=== PATIENT | female | born 1975 | race Caucasian/White ===

== ENCOUNTER 2021-08-10 10:22 | Emergency (ER) | payer OTHER, SELFPAY ==
--- NOTE | ~2021-08-10 | XR_ITS ---
EXAMINATION: XR elbow LT min 3V DATE: 08/10/2021 10:52 INDICATION: Left elbow injury and pain. TECHNIQUE: 4 views of left elbow were obtained. COMPARISON: None. FINDINGS: Bone alignment is normal. No fracture. Joint spaces are well maintained. There is no elbow joint effusion. IMPRESSION: 1. Normal left elbow. Reviewed, dictated and finalized at location A. [facility] IMPRESSION: 1. Normal left elbow.
[2021-08-10 10:29] VITALS: BP 144/102; PULSE 102; RESP 16; TEMP 36.6; O2SAT 100
--- NOTE | 2021-08-10 11:15 | ED.UPPEXIN ---
HPI - Extremity Injury (Upper) General Chief Complaint: Extremity Injury, Upper Stated Complaint: L elbow pain Time Seen by Provider: 08/10/21 10:29 Source: patient Mode of arrival: ambulatory Limitations: no limitations History of Present Illness HPI narrative: This is a 46-year-old female that presents to the emergency department for left elbow pain after an injury a week ago. Reports she hit her elbow on a metal door frame at the grocery store. Since she has had pain in the elbow. Especially with certain movements. She has been taking [id number] medications with little relief. Denies fever, erythema, edema, or numbness. Related Data Home Medications Medication Instructions Recorded Confirmed No Home Medications 08/10/21 08/10/21 Allergies Allergy/AdvReac Type Severity Reaction Status Date / Time No Known Allergies Allergy Verified 08/10/21 10:35 Review of Systems Review of Systems: CONSTITUTIONAL: Denies fever SKIN: Denies rash MUSCULOSKELETAL: Reports joint pain, and myalgia. NEUROLOGIC: Denies numbness, or weakness. All systems reviewed & are unremarkable except as noted in HPI and below PMFSH Past Medical History Medical History (Updated 08/10/21 @ 11:42 by Tahira Stapleton PA-C) No active medical problems Social History Social History Smoking status: Never smoker Alcohol intake: current Exam Narrative: GENERAL: Well-appearing, well-nourished, and in no acute distress. HEAD: Normocephalic, atraumatic. EYES: EOMI. EXTREMITIES: Normal range of motion. No edema or obvious deformity. Normal radial pulses. Normal sensation SKIN: Warm, dry, no rash. NEURO: No focal deficits. Alert and oriented x3. PSYCH: Normal mood and affect Course Vital Signs Vital signs: Vital Signs Temperature 97.8 F 08/10/21 10:29 Pulse Rate 102 H 08/10/21 10:29 Respiratory Rate 16 08/10/21 10:29 Blood Pressure 144/102 H 08/10/21 10:29 Pulse Oximetry 100 08/10/21 10:29 Temperature 97.8 F 08/10/21 10:29 Pulse Rate 102 H 08/10/21 10:29 Respiratory Rate 16 08/10/21 10:29 Blood Pressure 144/102 H 08/10/21 10:29 Pulse Oximetry 100 08/10/21 10:29 MDM - Extremity Injury (Upper) MDM Narrative Medical decision making narrative: Patient presents to the emergency department with left elbow pain after an injury a week ago. She is afebrile and nontoxic-appearing. No erythema, edema or warmth of the elbow. She is neurovascularly intact. Left elbow x-rays without acute osseous abnormalities. Patient was updated on case findings. Instructed to rest, ice and take lvmt-dvz-[id number] pain medication as needed. She is to follow-up with her primary care doctor. She was given warnings to return to the ER Imaging Data Radiologist's impression: ITS Impressions Elbow X-Ray 08/10/21 10:58 IMPRESSION: 1. Normal left elbow. Critical Care Time Critical Care Time Critical Care Time: No Discharge Plan Discharge Clinical Impression: Contusion of elbow Qualifiers: Encounter type: initial encounter Laterality: left Qualified Code(s): S50.02XA - Contusion of left elbow, initial encounter Patient Disposition: Home, Self-Care Condition: Stable Instructions: Contusion in Adults (ED) Additional Instructions: Return to the emergency department if you experience fever, redness and swelling of your elbow, numbness, or any other symptoms that are concerning to you Rest. Elevate. Ice to the area. Tylenol or ibuprofen as needed for pain Follow-up with your primary care doctor Prescriptions: No Action No Home Medications RF: 0 Follow-up/Referrals: Giovanny,MD Ellen [Primary Care Provider] - 3 Days
[2021-08-10] MEDS: KETOROLAC (*BKC) 60 MG/2 ML VIAL IM (11:26)
== END 2021-08-10 12:10 | disposition home or self-care (01) ==
PROVIDERS: Emergency Provider Emergency Medicine; PCP Hospitalist
DX: S50.02XA Contusion of left elbow, initial encounter (principal); W22.09XA Striking against other stationary object, initial encounter
CPT/HCPCS: 73080; 96372; 99283; A4565; J1885

== ENCOUNTER 2022-01-31 15:30 | Emergency (ER) | payer OTHER, SELFPAY ==
[2022-01-31 15:45] VITALS: BP 153/99; PULSE 122; RESP 14; TEMP 36.9; O2SAT 100
--- NOTE | 2022-01-31 17:36 | ED.DENTAL ---
HPI - Dental/Oral General Chief complaint: Dental/Oral Stated complaint: toothache Time Seen by Provider: 01/31/22 17:11 Source: patient Mode of arrival: ambulatory Limitations: no limitations History of Present Illness HPI Narrative: This is a 46-year-old female that presents to the emergency department for dentalgia present over the last 3 days. Reports she broke a tooth. It has been very painful since. She has an appointment with a dentist, but is not for another couple of weeks. Denies fever or drainage from the area. MD Complaint: tooth pain Location: Tooth # (4) Related Data Allergies Allergy/AdvReac Type Severity Reaction Status Date / Time No Known Allergies Allergy Verified 08/10/21 10:35 Review of Systems Review of Systems: CONSTITUTIONAL: Denies fever ENT: Reports dentalgia All systems reviewed & are unremarkable except as noted in HPI and below PMFSH Past Medical History Medical History (Updated 01/31/22 @ 17:39 by Tahira Stapleton PA-C) No active medical problems Social History Social History Smoking status: Never smoker Alcohol intake: current Exam Narrative: GENERAL: Well-appearing, well-nourished, and in no acute distress. HEAD: Normocephalic, atraumatic. EYES: EOMI. ENT: Nares clear, no rhinorrhea or epistaxis. Mucous membranes moist. Oropharynx without tonsillar hypertrophy exudate or other lesions. Poor dentition. Tooth #4 is broken, there is mild surrounding redness. No fluctuance to suggest abscess NECK: Supple. No adenopathy or masses. CHEST: Clear to auscultation. No respiratory distress. No wheezes rales or rhonchi HEART: Regular rate and rhythm. No murmur heard. Normal peripheral pulses. EXTREMITIES: Normal range of motion. No edema. SKIN: Warm, dry, no rash. NEURO: No focal deficits. Alert and oriented x3. PSYCH: Normal mood and affect Course Vital Signs Vital signs: Vital Signs Temperature 98.4 F 01/31/22 15:45 Pulse Rate 122 H 01/31/22 15:45 Respiratory Rate 14 01/31/22 15:45 Blood Pressure 153/99 H 01/31/22 15:45 Pulse Oximetry 100 01/31/22 15:45 Oxygen Delivery Room Air 01/31/22 15:45 Temperature 98.4 F 01/31/22 15:45 Pulse Rate 122 H 01/31/22 15:45 Respiratory Rate 14 01/31/22 15:45 Blood Pressure 153/99 H 01/31/22 15:45 Pulse Oximetry 100 01/31/22 15:45 Oxygen Delivery Room Air 01/31/22 15:45 MDM - Dental/Oral MDM Narrative Medical decision making narrative: Patient presents to the emergency department for tooth ache present over the last couple of days. She is afebrile and nontoxic-appearing. No evidence for abscess on exam. Will be started on oral antibiotics and instructed to follow-up with a dentist. She was given warnings to return to the ER Critical Care Time Critical Care Time Critical Care Time: No Discharge Plan Discharge Clinical Impression: Toothache Patient Disposition: Home, Self-Care Condition: Stable Instructions: Antibiotic Form, Toothache (ED) Additional Instructions: Return to the Emergency Department if you experience fever >101, increasing swelling and redness of your tooth, or any other symptoms that are concerning to you Take antibiotic as prescribed. Tylenol or Ibuprofen as needed for pain. You can apply a dab of clove oil to a Qtip and apply to the tooth to help numb the area Follow up with your dentist Prescriptions: New amoxicillin-pot clavulanate 875-125 mg tablet 1 tablet PO Q12H 10 Days Qty: 20 0RF No Action cyclobenzaprine 10 mg tablet 10 mg PO TID PRN (Reason: muscle spasm) Qty: 10 0RF Follow-up/Referrals: Giovanny,MD Ellen [Primary Care Provider] -
[2022-01-31] MEDS: HYDROcodone/acetaminophen (*CRX) 5-325 MG TABLET 1 TAB PO (17:42)
[2022-01-31 17:46] VITALS: BP 152/95; PULSE 97; RESP 18; TEMP 36.9; O2SAT 100
== END 2022-01-31 18:26 | disposition home or self-care (01) ==
LOC: ANHED 18:01
PROVIDERS: Emergency Provider Emergency Medicine; PCP Hospitalist
DX: K08.89 Other specified disorders of teeth and supporting structures (principal)
CPT/HCPCS: 99283; A9270

== ENCOUNTER 2024-09-19 14:35 | Emergency (ER) | payer OTHER, SELFPAY ==
--- NOTE | ~2024-09-19 | XR_ITS ---
XR foot LT min 3V 09/19/2024 15:08 Indication: Trauma to the left foot Procedure: 3 views left foot Comparison: No prior studies for comparison. Findings: No fracture, subluxation or dislocation. Prominent degenerative calcaneal enthesophyte at t he plantar aspect. There is a healed distal fibular fracture. Lisfranc joint intact. No acute fractur e or traumatic malalignment. Impression: 1: No acute fracture. Reviewed, dictated and finalized at location A. Impression: 1: No acute fracture.
[2024-09-19 14:39] VITALS: BP 158/89; PULSE 118; RESP 14; TEMP 36.5; O2SAT 99
--- NOTE | 2024-09-19 14:53 | ED_ITS ---
HPI - Extremity Injury (Lower) General Chief Complaint: Extremity Injury, Lower Stated Complaint: left foot injury Time Seen by Provider: 09/19/24 14:49 Source: patient Mode of arrival: ambulatory Limitations: no limitations History of Present Illness HPI Narrative: Patient is a 49-year-old female who presents the ED with report of left foot pain. Patient reports she was using her shop vac at home when the lid did not latch when she picked it up, causing the bucket to fall onto her left foot. Complains of pain and swelling to left dorsal foot. Has not taken anything for pain. Is able to ambulate, but has pain with this. Denies any other injuries. Related Data Allergies Allergy/AdvReac Type Severity Reaction Status Date / Time No Known Allergies Allergy Verified 09/19/24 14:55 Review of Systems Review of Systems: All systems reviewed & are unremarkable except as noted in HPI. All systems reviewed & are unremarkable except as noted in HPI and below PMFSH Past Medical History Medical History No active medical problems Social History Social History Smoking status: Never smoker Alcohol intake: current Exam Narrative: GENERAL: Well appearing, morbidly obese with BMI of 44.0, non-toxic, in no acute distress. HEAD: Normocephalic, atraumatic. RESPIRATORY: Airway patent, respirations nonlabored. CARDIOVASCULAR: Regular rate and rhythm. Pedal pulses intact and easily palpable. MUSCULOSKELETAL: Moves all extremities. Diffuse swelling and bruising throughout left dorsal foot. Focal tenderness to palpation. No significant bony tenderness over ankle joint. Sensation intact. SKIN: Warm, dry, normal color. NEURO: A&O X3. Speech clear. Cranial nerves II-XII grossly intact. Mildly antalgic gait. No ataxic movements. PSYCHIATRIC: Appropriate mood and affect. Normal interaction. Course Vital Signs Vital signs: Vital Signs Temperature 97.7 F 09/19/24 14:39 Pulse Rate 118 H 09/19/24 14:39 Respiratory Rate 14 09/19/24 14:39 Blood Pressure 158/89 H 09/19/24 14:39 Pulse Oximetry 99 09/19/24 14:39 Temperature 97.7 F 09/19/24 14:39 Pulse Rate 118 H 09/19/24 14:39 Respiratory Rate 14 09/19/24 14:39 Blood Pressure 158/89 H 09/19/24 14:39 Pulse Oximetry 99 09/19/24 14:39 MDM - Extremity Injury (Lower) MDM Narrative Medical decision making narrative: Patient?s injury is consistent with musculoskeletal etiology. No signs of neurologic or vascular compromise on physical examination. Compartments are soft without signs of compartment syndrome. XR of left foot negative for fracture. Pain is consistent with foot contusion. Patient is felt to be stable for discharge home and further outpatient management and treatment. Given patient postop shoe for comfort and support. Discussed rice therapy, recommended that she continue Tylenol and ibuprofen as needed for pain. Patient requested something stronger for pain. She was given dose of tramadol here. Discussed that there is no indication for pain narcotic pain prescription without evidence of a fracture. Patient repeatedly asking for tramadol. I advised I do not feel comfortable prescribing this as I do not feel it is clinically indicated. Patient voiced understanding. Will be referred to orthopedics for further evaluation if needed. Given return precautions. Discharged in stable condition. Medical Records Attestation: I reviewed the patient's medical records. Imaging Data Attestation: I personally reviewed and interpreted this imaging study as follows: Radiologist's impression: ITS Impressions Foot X-Ray 09/19/24 15:12 Impression: 1: No acute fracture. Discharge Plan Discharge Clinical Impression: Contusion of left foot Qualifiers: Encounter type: initial encounter Qualified Code(s): S90.32XA - Contusion of left foot, initial encounter Patient Disposition: Home, Self-Care Condition: Stable Instructions: Antibiotic Form, Foot Contusion (ED), Foot Sprain (ED), P.R.I.C.E. Treatment (ED) Additional Instructions: Your imaging did not show any evidence of fracture. Continue Tylenol and ibuprofen as needed for pain. Recommend frequent icing to foot, elevation of foot/leg. Follow-up with primary care doctor and/or orthopedics for further evaluation if needed. Return to the ED if you experience worsening pain or swelling, recurrent injury, numbness, or any other symptoms of concern. Patient Language: [place] Citizen Prescriptions: No Action amoxicillin-pot clavulanate 875-125 mg tablet 1 tablet PO Q12H 10 Days Qty: 20 0RF tramadol 50 mg tablet 50 mg PO Q6H PRN (Reason: pain) Qty: 7 0RF cyclobenzaprine 10 mg tablet 10 mg PO TID PRN (Reason: muscle spasm) Qty: 10 0RF Follow-up/Referrals: Rupesh Rosario MD [Physician] - (ORTHOPEDICS) Giovanny,MD Ellen [Primary Care Provider] - Time of Disposition: 15:33
[2024-09-19] MEDS: traMADol HCL (*CRX) 50 MG TABLET PO (14:55)
--- OUTSIDE RECORDS SUMMARY | 2024-09-19 15:26 | XMS_ITS | Encounter Summary ---
Author Organization [facility] Address [address] [place] [address] Phone Care Team Providers Care Transcribing Machine Operator Name Role Phone Ellen Baltazar MD Primary Care Provider + [phone] Koko Unger MD Unavailable [phone] Encounter Details Date Type Department Care Team (Late st Contact Info) Description 08/24/2017 Orders Only [facility] ProviderCarlos MD [address] [place] [id number] Social History Tobacco Use Types Packs/Day Years Used Date Smoking Tobacco: Never Alcohol Use Standard Drinks/Week Comments No 0 (1 standard drink = 0.6 oz pur e alcohol) Comments Unknown Sex and Gender Information Value Date Recorded Sex Assigned at Not on file Legal Sex Female 9:34 AM INOCULATOR Gender Identity Not on file Sexual Orientation Not on file 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 us Historical Provider LAB CYTOLOGY ORDERABLES F inal Result documented in this encounter Visit Diagnoses Not on filedocumented in this encounter Care Teams Transcribing Machine Operator Relationship Specialty Start Date End Date Ellen Baltazar MD [id number] [place] [id number] PCP - General Internal Medicine 04/27/17 Koko Unger MD [id number] [place] [id number] Surgeon Colon and Rectal Surgery 05/01/18 documented as of this encounter
--- OUTSIDE RECORDS SUMMARY | 2024-09-19 15:26 | XMS_ITS | Referral Summary ---
Author Organization [facility] Address [address] [place] [id number] Care Team Providers Care High Raw Sugar Boiler Name Role Phone Ellen Baltazar MD Primary Care Provider + [phone] Koko Unger MD Unavailable [phone] Encounters Date Type Department Care Team Description 09/16/2024 Orders Only [facility] Medical [facility] at [facility] - [address] [place] [phone] Ellen Baltazar MD 09/16/2024 Orders Only [facility] Medical Group Primary Care at [facility] - [address] [place] [phone] Ellen Baltazar MD 07/19/2024 ACO Quality [facility] Accountable Care Organization [address] [place] [id number] Zara Alston 07/05/2024 Telephone [facility] Medical Group at [address] [phone] Ellen Baltazar MD 07/02/2024 1:25 PM NAPRAPATH Lab [address] [phone] Routine lab draw 07/02/2024 2:30 PM NAPRAPATH Office Visit [facility] Medical Group at [address] [place] [phone] Ellen Baltazar MD Tachycardia (Primary Dx); Morbid obesity with BMI of 40.0-44.9, adult (HCC); BMI 40.0-44.9, adult (HCC); Anxiety; Hypertension, essential; Ventral hernia without obstruction or gangrene; Encounter for screening mammogram for malignant neoplasm of breast from Last 3 Months Allergies No known active allergies Medications naloxone (NARCAN) 4 mg/actuation spray,non-aero mendy Administer 1 spray into affected nostril(s) as needed for opioid reversal or respiratory depression Call 911. Administer a single spray in one nostril. Repeat every 3 minutes as needed if no or minimal response. 1 each 3 2 Active ibuprofen (ADVIL,MOTRIN) 800 mg tablet TAKE 1 TABLET BY MOUTH 3 TIMES A DAY NEEDED FOR PAIN. 270 tablet 1 3 Active nystatin ointment APPLY TO AFFECTED AREA TWICE A DAY 30 g 3 4 Active hydrOXYzine (ATARAX) 25 mg tablet Take 1 tablet (25 mg total) by mouth 2 (two) times a day as needed for itching 60 tablet 4 4 Active metoprolol XL (TOPROL-XL) 50 mg extended release tablet Take 1 tablet (50 mg total) by mouth daily 30 tablet 6 5 07/02/19 26 Active clonazePAM (KlonoPIN) 0.5 mg tablet Take 0.5 tablets (0.25 mg total) by mouth daily 15 tablet 1 5 Active traMADoL (ULTRAM) 50 mg tablet Take 1 tablet (50 mg total) by mouth 3 (three) times a day as needed for pain 90 tablet 2 5 Active traMADoL (ULTRAM) 50 mg tablet Take 1 tablet (50 mg total) by mouth 3 (three) times a day as needed for pain 90 tablet 2 5 09/17/19 25 Discontin ued(Reord er) Active Problems Problem Noted Date Diagnosed Date Hypomagnesemia 09/16/2024 Prediabetes 09/16/2024 Elevated d-dimer 09/16/2024 Elevated cancer antigen 125 (CA 125) 09/16/2024 Hypertension, essential 08/07/2022 Assessment & Plan (07/02/2024 2:33 PM NAPRAPATH): Continue Metoprolol 25mg a day Assessment & Plan (03/27/2024 7:08 AM CDT): Will increase Amlodipine to 5mg a day Assessment & Plan (08/26/2023 9:36 AM NAPRAPATH): Continue Amlodipine 2.5mg once a day Assessment & Plan (12/06/2022 8:50 AM CDT): Continue Amlodipine 2.5mg once a day Assessment & Plan (08/07/2022 3:24 PM NAPRAPATH): Start Amlodipine 2.5mg a day Irregular menstrual cycle 09/29/2021 Assessment & Plan (03/02/2022 7:30 PM CDT): Resolving Assessment & Plan (11/19/2021 8:53 AM CDT): Will continue to monitor Assessment & Plan (09/29/2021 2:31 PM CDT): Patient to follow up with DAIRY HUSBANDMAN Morbid obesity with BMI of 45.0-49.9, adult 03/27 Assessment & Plan (03/27/2024 7:04 AM CDT): Patient to decrease intake and increase activity Assessment & Plan (08/26/2023 9:31 AM NAPRAPATH): Decrease intake and increase activity Assessment & Plan (12/06/2022 8:49 AM CDT): Will start Mounjaro 2.5mg once a week Assessment & Plan (08/07/2022 3:14 PM NAPRAPATH): Decrease intake and increase activity Assessment & Plan (03/02/2022 7:38 PM CDT): Decrease intake and increase activity Assessment & Plan (11/19/2021 8:54 AM CDT): Decrease intake and increase activity Assessment & Plan (09/29/2021 2:25 PM CDT): Decrease intake and increase activity Assessment & Plan (06/30/2021 8:17 PM NAPRAPATH): Decrease intake and increase activity Assessment & Plan (05/15/2021 10:01 PM NAPRAPATH): Decrease intake and increase activity Assessment & Plan (04/18/2021 9:13 PM CDT): Decrease intake and increase activity Morbid obesity with BMI of 40.0-44.9, adult 03/27 Assessment & Plan (07/02/2024 2:29 PM NAPRAPATH): Patient to decrease intake and increase activity Assessment & Plan (03/27/2024 7:04 AM CDT): Patient to decrease intake and increase activity Assessment & Plan (08/26/2023 9:32 AM NAPRAPATH): Decrease intake and increase activity Assessment & Plan (12/06/2022 8:50 AM CDT): Decrease intake and increase activity Assessment & Plan (08/07/2022 3:14 PM NAPRAPATH): Decrease intake and increase activity Assessment & Plan (03/02/2022 7:39 PM CDT): Decrease intake and increase activity Assessment & Plan (11/19/2021 8:54 AM CDT): Decrease intake and increase activity Assessment & Plan (09/29/2021 2:26 PM CDT): Decrease intake and increase activity Assessment & Plan (05/15/2021 10:02 PM NAPRAPATH): Decrease intake and increase activity Assessment & Plan (04/18/2021 9:14 PM CDT): Decrease intake and increase activity Incarcerated hernia 07/18/2020 Assessment & Plan (08/11/2020 10:02 AM NAPRAPATH): Patient was admitted on 07/17/2020 for an incarcerated abdominal hernia and subsequent small bowel obstruction. The hernia was repaired on 07/21/2020. Patient is still with abdominal pain. Patient given Tramadol for pain relief. Continue current therapy. Will monitor. Hemorrhoids 07/18/2020 Episode of recurrent major depressive disorder 0 10/13/2019 Assessment & Plan (11/19/2021 8:51 AM CDT): Continue Sertraline 50mg a day Assessment & Plan (09/29/2021 2:28 PM CDT): Will take venlafaxine 75mg every other day for two weeks then one tablet three times a week for one week then stop.Will Start Sertraline 50mg one tablet a day for two weeks then increase to 100mg a day Assessment & Plan (06/30/2021 8:21 PM NAPRAPATH): Will change to Venlafaxine 75mg a day. Will stop bupropion Assessment & Plan (04/18/2021 9:18 PM CDT): Patient to start Bupropion XL 150mg a day Assessment & Plan (08/04/2020 8:41 AM NAPRAPATH): Stable. Patient to continue Buspirone 10 mg prn for anxiety. Will monitor. Assessment & Plan (10/13/2019 4:17 PM CDT): Continue buspirone as needed Periumbilical abdominal pain 10/13/2019 Assessment & Plan (10/13/2019 4:45 PM CDT): Patient to with surgeon for possible umbilical hernia if symptoms progress. Use tramadol as needed Iron deficiency 07/30/2019 Assessment & Plan (07/30/2019 9:42 AM NAPRAPATH): patient's last H&H 9.9&34.2 on 07/09/2019. She is compliant with iron supplements. Continue current management; will monitor. Anxiety 07/30/2019 Assessment & Plan (07/02/2024 2:32 PM NAPRAPATH): Continue Clonazepam 0.5mg once a day and Hydroxyzine 25mg one tablet BID PRN. Will not stop the Clonazepam today because of elevated heart rate. Assessment & Plan (03/27/2024 7:07 AM CDT): Will continue slow wean of Clonazepam. Will continue Clonazepam 05mg a day. Will start Hydroxyzine 25mg twice a day Assessment & Plan (08/26/2023 9:33 AM NAPRAPATH): Continue Clonazepam 0.5mg one tablet BID PRN Assessment & Plan (12/06/2022 8:51 AM CDT): Continue Clonazepam 0.5mg twice a day Assessment & Plan (08/07/2022 3:16 PM NAPRAPATH): Continue Clonazepam 0.5mg twice a day Assessment & Plan (03/02/2022 7:27 PM CDT): Patient to continue Clonazepam 0.5mg once a day Assessment & Plan (11/19/2021 8:52 AM CDT): Continue Clonazepam 0.5mg a day. Assessment & Plan (09/29/2021 2:28 PM CDT): Continue Buspirone 10mg TID PRN Assessment & Plan (06/30/2021 8:20 PM NAPRAPATH): Patient to to Buspirone 10mg TID PRN Assessment & Plan (05/15/2021 10:04 PM NAPRAPATH): Continue Buspirone 10mg a day Assessment & Plan (04/18/2021 9:19 PM CDT): Patient to take buspirone 10mg TID PRN Assessment & Plan (07/30/2019 9:45 AM NAPRAPATH): Stable. Continue current management with good exercise regimen. Will continue to monitor. H/O ventral hernia repair w/o mesh 07/30/2019 Overview (07/30/2019): Performed by Dr. Unger, general surgery, on 07/05/2019 Assessment & Plan (11/19/2021 8:55 AM CDT): Patient to continue Tramadol as needed Assessment & Plan (08/04/2020 3:22 PM NAPRAPATH): Will continue with tramadol as needed for pain. Follow up with surgeon. Assessment & Plan (07/30/2019 9:44 AM NAPRAPATH): Performed by Dr. Unger, general surgery, on 07/05/2019. Patient is healing well. Still complains of exquisite pain with movement. I will prescribe a one-time, limited course of Percocet for pain control. I instructed the patient to use this judiciously as I will NOT provide any further refills of this medication. If she needs further refills, she will have to return to Dr. Unger for these.. The patient verbalized understanding and agreed to use this medication as prescribed. Will monitor. History of colostomy reversal 07/30/2019 Overview (07/30/2019): Performed by Dr. Unger, general surgery, on 07/05/2019 Assessment & Plan (07/30/2019 9:44 AM NAPRAPATH): Performed by Dr. Unger, general surgery, on 07/05/2019. Patient is healing well. Still complains of exquisite pain with movement. I will prescribe a one-time, limited course of Percocet for pain control. I instructed the patient to use this judiciously as I will NOT provide any further refills of this medication. If she needs further refills, she will have to return to Dr. Unger for these.. The patient verbalized understanding and agreed to use this medication as prescribed. Will monitor. Presence of colostomy 03/07/2019 Overview (03/07/2019): Added automatically from request for surgery [id number] Colostomy care 04/24/2018 Assessment & Plan (05/30/2018 9:24 AM NAPRAPATH): Discussed colostomy care-patient able to care for colostomy independently Gastrointestinal hemorrhage 04/17/2018 Overview (04/18/2018): Added automatically from request for surgery [id number] Pelvic abscess in female 03/23/2018 Diverticulitis 03/23/2018 Umbilical hernia 03/23/2018 Sepsis 03/23/2018 Normocytic anemia 03/23/2018 Thrombocytosis 03/23/2018 GERD (gastroesophageal reflux disease) Thrombocytopenia Ventral hernia without obstruction or gangrene Assessment & Plan (07/02/2024 2:34 PM NAPRAPATH): Continue Tramadol 50mg TID PRN Assessment & Plan (08/26/2023 9:35 AM NAPRAPATH): Continue follow up with surgeon Assessment & Plan (12/06/2022 8:52 AM CDT): Continue Follow up with surgeon. Continue Tramadol as needed Assessment & Plan (08/07/2022 3:19 PM NAPRAPATH): Patient cautioned about signs and symptoms of incarcerated hernia. Continue Tramadol as needed for pain. Assessment & Plan (03/02/2022 7:29 PM CDT): Continue Tramadol as needed. Follow up with surgeon. Recommend weight loss Assessment & Plan (11/28/2021 6:07 PM CDT): Continue Tramadol as needed Assessment & Plan (09/29/2021 2:29 PM CDT): Continue Tramadol as needed Assessment & Plan (06/30/2021 8:22 PM NAPRAPATH): Will continue Tramadol for pain. Follow up with surgeon for increase pain. Assessment & Plan (05/15/2021 10:08 PM NAPRAPATH): Continue follow up with surgery. Continue to encourage weight loss. Assessment & Plan (04/18/2021 9:23 PM CDT): Patient to follow up surgeon Tachycardia Assessment & Plan (07/03/2024 6:12 PM NAPRAPATH): Will have patient to obtain echo . Will check electrolytes Assessment & Plan (03/27/2024 7:13 AM CDT): Will have patient to obtain Echo because of the Tachycardia Assessment & Plan (07/30/2019 10:25 AM NAPRAPATH): EKG in office today showed non-specific ST changes, which appear to be unchanged since her pre-op testing. Will order D-dimer; if this is positive, will order CT PE and bilateral LE venous dopplers. Will monitor. SBO (small bowel obstruction) Suspected UTI Resolved Problems Problem Noted Date Diagnosed Date Resolved Date Acute blood loss anemia 04/17/201808/25 Overview (04/18/2018): Added automatically from request for surgery [id number] BMI 40.0-44.9, adult 03/27/2018 025 Assessment & Plan (07/02/2024 2:30 PM NAPRAPATH): Decrease intake and increase activity Colitis 03/23/2018 09/16/2024 Dehydration 03/23/2018 09/16/2024 Abscess 09/16/2024 Immunizations Immunization Administration Dates Next Due Influenza, Quadrivalent, Spl it, Preservative Free, Intramuscular 04/16/2021 Influenza, Trivalent, Preser vative Free, Intramuscular 04/21/2014 Influenza, Unspecified 06/23/2023(Deferr ed: Patient Refused),08/02/2022(Deferred: Patient decision),06/24/2022(Deferred: Patient Refused),11/19/2021(Deferred: Patient Refused) Pfizer SARS-CoV-2 Monovalent Vaccination (12+ Yrs) PURPLE 07/25/2021,06/25/2021 Tdap 08/24/2017 Social History Tobacco Use Types Packs/Day Years Used Date Smoking Tobacco: Never Smokeless Tobacco: Never Tobacco Cessation:Counseling Given: Not Answered Alcohol Use Standard Drinks/Week Comments No 0 (1 standard drink = 0.6 oz pur e alcohol) AUDIT-C Answer Date Recorded Q1: How often do you have a drink containing alc ohol? Monthly or less 11/19/2021 Average Number of Drinks Not on file 022 Q3: How often do you have si x or more drinks on one occasion? Never 11/19/2021 PHQ-2 Answer Date Recorded PHQ-2 Total Score (If total score is 3 or more points, staff should administer the PHQ-9) 0 03/26/2024 PHQ-9 Answer Date Recorded PHQ-9 Total Score 0 03/26/2024 Comments No Sex and Gender Information Value Date Recorded Sex Assigned at Not on file Legal Sex Female 9:34 AM NAPRAPATH Gender Identity Not on file Sexual Orientation Not on file Occupation Industry Job Start Date Job End Date [employer] Not on file Not on file Not on file Last Filed Vital Signs Vital Sign Reading Time Taken Comments Blood Pressure 130/90 07/02/2024 2:12 PM NAPRAPATH Pulse 128 07/02/2024 2:12 PM NAPRAPATH Temperature 37.1 C (98.7 F) 03/26/2024 2:34 PM CDT Respiratory Rate 18 07/02/2024 2:12 PM NAPRAPATH Oxygen Saturation 97% 07/02/2024 2:12 PM NAPRAPATH Inhaled Oxygen Concentration - - Weight 111.6 kg (246 lb) 07/02/2024 2:12 PM NAPRAPATH Height 157.5 cm (5' 2.01 ) 07/02/2024 2:12 PM CS T Body Mass Index 44.98 07/02/2024 2:12 PM NAPRAPATH Plan of Treatment Not on file Medical Devices Implanted Type Area Boiler Coverer Helper Device Identifier Shelf Expiration Date Model / Serial / Lot [employer] [id number] Seprafilm 6x5in Barrier Adhesion Sterile Disposable Latex Free - [id number] Implanted:Qty: 2 on 04/20/2018 by Koko Unger MD at [facility] Abdomen [employer] 11/24/2019 [id number] / / [id number] [employer] [id number] Seprafilm 6x5in Barrier Adhesion Sterile Disposable Latex Free - [id number] Implanted:Qty: 4 on 04/20/2018 by Koko Unger MD at [facility] Abdomen [employer] 12/24/2019 [id number] / / [id number] [employer] [id number] Seprafilm 6x5in Barrier Adhesion Sterile Disposable Latex Free - [id number] Implanted:Qty: 1 on 07/05/2019 by Koko Unger MD at [facility] N/A: Abdomen [employer] 12/23/2020 [id number] / / [id number] [employer] 716829 Seprafilm 6x5in Barrier Adhesion Sterile Disposable Latex Free - [id number] Implanted:Qty: 1 on 07/05/2019 by Koko Unger MD at [facility] N/A: Abdomen [employer] 02/23/2022 [id number] / / [id number] [employer] 673801 Seprafilm 6x5in Barrier Adhesion Sterile Disposable Latex Free - [id number] Implanted:Qty: 1 on 07/21/2020 by Koko Unger MD at [facility] N/A: Abdomen [facility] 11/28/2022 [id number] / / [id number] [employer] 434178 Seprafilm 6x5in Barrier Adhesion Sterile Disposable Latex Free - [id number] Implanted:Qty: 1 on 07/21/2020 by Koko Unger MD at [facility] N/A: Abdomen [facility] 12/05/2022 [id number] / / [id number] [employer]C R Bard [id number] Ventralight St Sepra Echo Ps L10 In X W6 In Monofilament Light Latex Free - [id number] Implanted:Qty: 1 on 07/21/2020 by Koko Unger MD at [facility] N/A: Abdomen [employer] 08/23/2020 [id number] / / [id number] [employer] 944565 Seprafilm 6x5in Barrier Adhesion Sterile Disposable Latex Free - [id number] Implanted:Qty: 1 on 07/21/2020 by Koko Unger MD at [facility] N/A: Abdomen [facility] 12/05/2022 [id number] / / [id number] [employer] 068511 Seprafilm 6x5in Barrier Adhesion Sterile Disposable Latex Free - [id number] Implanted:Qty: 1 on 07/21/2020 by Koko Unger MD at [facility] N/A: Abdomen [facility] 12/05/2022 [id number] / / [id number] [employer] [id number] Seprafilm 6x5in Barrier Adhesion Sterile Disposable Latex Free - [id number] Implanted:Qty: 1 on 07/21/2020 by Koko Unger MD at [facility] N/A: Abdomen [facility] 12/05/2022 [id number] / / [id number] [employer] 247041 Seprafilm 6x5in Barrier Adhesion Sterile Disposable Latex Free - [id number] Implanted:Qty: 1 on 07/21/2020 by Koko Unger MD at [facility] N/A: Abdomen [facility] 12/05/2022 [id number] / / [id number] Procedures Procedure Name Priority Date/Time Associated Diagnosis Comments URINALYSIS, MICROSCOPIC ONLY Routine 07/02/2024 1:29 PM NAPRAPATH Routine lab draw URINALYSIS AND REFLEX TO MICROSCOPIC AND CULTURE Routine 07/02/2024 1:29 PM NAPRAPATH Routine lab draw EGFR Routine 07/02/2024 1:24 PM NAPRAPATH Routine lab draw DIFFERENTIAL AUTO Routine 07/02/2024 1:2 4 PM NAPRAPATH Routine lab draw LIPID PANEL Routine 07/02/2024 1:24 PM NAPRAPATH Routine lab draw HEMOGLOBIN A1C Routine 07/02/2024 1:24 PM NAPRAPATH Routine lab draw COMPREHENSIVE METABOLIC PANEL Routine 07/02/2024 1:24 PM NAPRAPATH Routine lab draw CBC WITH AUTO DIFFERENTIAL Routine 07/02/2024 1:24 PM NAPRAPATH Routine lab draw TSH Routine 07/02/2024 1:24 PM NAPRAPATH Routine lab draw COLONOSCOPY 12/07/2018 9:00 AM CDT HEPATITIS PANEL, ACUTE Routine 8 11:37 AM CDT Gastroesophageal reflux disease with esophagitis Generalized abdominal or pelvic swelling or mass or lump Blood in the stool Unintentional weight loss from Last 3 Months or Most Recently Relevant to Health Maintenance Results * (ABNORMAL) Urinalysis reflex to microscopic and culture Urine, clean voided (07/02/2024 1:29 PM NAPRAPATH) Color, ur Yellow Yellow Comment:[facility] [address] [place] [address] Clarity, ur Turbid(A) Clear [facility] Comment:Testing performed by : [facility], [place] [address] Specific gravity, ur 1.047(H) 1.003 - 1.030 [facility] Comment:Testing performed by : [facility] [place] [address] pH, urine 6.0 [facility] Comment: Interpretive Data U rine pH is affected by diet, medications, systemic acid-base disturbances, and renal tubular function. pH may affect urinary stone formation. For example, urine pH below 6.0 may help reduce the tendency for calcium phosphate stones and pH greater than 6.0 may reduce the tendency for uric acid stone formation. Source: [facility] Current Interpretive Data was last revised on 2017 Testing performed by: [facility], [address] [place] [address] Protein, ur ql 1+(A) Negative [facility] Comment:Testing performed by : [facility], [address] [place] [address] Glucose, ur ql Negative Negative [facility] Comment:Testing performed by : [facility], [address] [address] Ketones, ur Trace Negative [facility] Comment:Testing performed by : [facility], [address] [place] [address] Bilirubin, ur Negative Negative [facility] Comment:Testing performed by : [facility], [address] [place] [address] Blood, ur Negative Negative [facility] Comment:Testing performed by : [facility], [address] [place] [address] Urobilinogen, ur 2.0(A) <2.0 mg/dL [facility] Comment:Testing performed by : [facility], [address] [place] [address] Nitrite, ur Negative Negative [facility] Comment:Testing performed by : [facility], [address] [address] Leukocyte esterase, ur Negative Negative [facility] Comment:Testing performed by : [facility], [address] [place] [address] UA reflex comment Reflex to microscopic UA will be performed. [facility] Comment:Testing performed by : [facility], [address] [place] [address] Urine, clean voided 07/02/2024 1:29 PM NAPRAPATH 07/02/2024 1:29 PM NAPRAPATH us Ellen Baltazar MD LAB MICROBIOLOGY - GENERAL ORDERABLES Final Result [facility] [address] Department [place] [address] * (ABNORMAL) Urinalysis, microscopic only (07/02/2024 1:29 PM NAPRAPATH) WBC, ur 0-5 0 - 5 Comment:Testing performed by : [facility], [address], [place] [address] RBC, ur 6-10(A) 0 - 2 /HPF [facility] Comment:Testing performed by : [facility], [address], [place] [address] Epithelial cells, squamous, ur >50(A) 0 - 5 /HPF [facility] Comment:Testing performed by : [facility], [address], [place] [address] Bacteria, ur 1+(A) [facility] Comment:Testing performed by : [facility], [address], [place] [address] Mucous, ur Present(A) [facility] Comment:Testing performed by : [facility], [address], [place] [address] Culture Reflex Comment Reflex conditions for urine culture (WBC >10) not met. [facility] Comment:Testing performed by : [facility], [address] [place] [address] Urine, clean voided 07/02/2024 1:29 PM NAPRAPATH 07/02/2024 1:50 PM NAPRAPATH Ellen Baltazar MD LAB URINE ORDERABLES Final Result [facility] [address] Department of Laboratories [place], [place] [id number] * eGFR (07/02/2024 1:24 PM NAPRAPATH) eGFR 74 >=60 mL/min/1. 73 m2 Comment: Interpretive Data Reference Interval Normal >/= 90 mL/min/1.73m2 Mildly decreased* 60 - 89 mL/min/1.73m2 Mildly to moderately decreased 45 - 59 mL/min/1.73m2 Moderately to severely decreased 30 - 44 mL/min/1.73m2 Severely decreased 15 - 29 mL/min/1.73m2 Kidney Failure < 15 mL/min/1.73m2 *Relative to young adult level Estimated glomerular filtration rate is determined by the 2020 CKD-EPI equation recommended by the National Kidney Foundation (A Unifying Approach to GFR Estimation: Recommendations of the NKF-ASK Task Force on Reassessing the Inclusion of Race in Diagnosing Kidney Disease, KYLESN 2020). The CKD-EPI equation should not be used for patients with unstable renal function and has not been validated in children and those over 70. Current interpretive data was last reviewed 2021. Testing [facility]: [facility], [place] [address] Blood 07/02/2024 1:24 PM NAPRAPATH 07/02/2024 1:24 PM NAPRAPATH Ellen Baltazar MD LAB BLOOD ORDERABLES Final Result [facility] [address] Department [place] [address] * Differential, auto (07/02/2024 1:24 PM NAPRAPATH) Neutrophil abs 5.2 1.5 - 6.5 K/cumm Comment:Testing performed by : [facility], [place] [address] Imm gran abs 0.0 0.0 - 0.1 K/cumm [facility] Comment:Testing performed by : [facility], [place] [address] Lymphocyte abs 1.6 0.8 - 3.3 K/cumm [facility] Comment:Testing performed by : [facility] [place] [address] Monocyte abs 0.5 0.2 - 0.8 K/cumm [facility] Comment:Testing performed by : [facility] [place] [address] Eosinophil abs 0.1 0.0 - 0.5 K/cumm [facility] Comment:Testing performed by : [facility] [place] [address] Basophil abs 0.0 0.0 - 0.1 K/cumm [facility] Comment:Testing performed by : [facility] [place] [address] Neutrophil pct 69.0 % [facility]ER Comment: Interpretive Data Percent cell count reference ranges are not reported, since discordance with absolute values may lead to misinterpretation of CBC data. Current Interpretive Data was last revised on 2017. [facility] [place] [address] Imm gran pct 0.3 % [facility] Comment: Interpretive Data Percent cell count reference ranges are not reported, since discordance with absolute values may lead to misinterpretation of CBC data. Current Interpretive Data was last revised on 2017. Testing performed by: [facility], [address] [place] [address] Lymphocyte pct 21.8 % [facility] Comment: Interpretive Data Percent cell count reference ranges are not reported, since discordance with absolute values may lead to misinterpretation of CBC data. Current Interpretive Data was last revised on 2017. Testing performed by: [facility], [facility] [place] [address] Monocyte pct 6.9 % [facility] Comment: Interpretive Data Percent cell count reference ranges are not reported, since discordance with absolute values may lead to misinterpretation of CBC data. Current Interpretive Data was last revised on 2017. Testing performed by: [facility], [facility] [place] [address] Eosinophil pct 1.5 % [facility] Comment: Interpretive Data Percent cell count reference ranges are not reported, since discordance with absolute values may lead to misinterpretation of CBC data. Current Interpretive Data was last revised on 2017. Testing performed by: [facility], [facility] [place] [address] Basophil pct 0.5 % [facility] Comment: Interpretive Data Percent cell count reference ranges are not reported, since discordance with absolute values may lead to misinterpretation of CBC data. Current Interpretive Data was last revised on 2017. Testing performed by: [facility], [place] [address] Blood 07/02/2024 1:24 PM NAPRAPATH 07/02/2024 1:24 PM NAPRAPATH us Ellen Baltazar MD LAB BLOOD ORDERABLES Final Result DAVONTE RIZZO [address] Department [place] [address] * (ABNORMAL) CBC with auto differential (07/02/2024 1:24 PM NAPRAPATH) [facility] WBC 7.5 3.8 - 9.9 K/cumm Comment:Testing performed by : [facility] [place] [address] Hgb 12.8 11.9 - 15.5 g/dL [facility] Comment:Testing performed by : [facility] [place] [address] Hct 40.1 35.6 - 45.5 % [facility] Comment:Testing performed by : [facility] [place] [address] Plt 358 150 - 400 K/cumm [facility] Comment:Testing performed by : [facility] [place] [address] MPV 9.9 9.1 - 12.3 fL [facility] Comment:Testing performed by : [facility] [place] [address] RBC 4.41 3.90 - 5.20 M/cumm [facility] Comment:Testing performed by : [facility] [place] [address] MCV 90.9 81.3 - 96.4 fL [facility] Comment:Testing performed by : [facility] [place] [address] [place] [address] MCH 29.0 27.1 - 33.3 pg [facility] Comment:Testing performed by : [facility] [place] [address] MCHC 31.9(L) 32.3 - 35.7 g/dL [facility] Comment:Testing performed by : [facility] [place] [address] RDW CV 13.9 11.1 - 14.9 % [facility] Comment:Testing performed by : [facility] [place] [address] RDW SD 46.5 35.7 - 48.1 fL [facility] Comment:Testing performed by : [facility] [place] [address] NRBC abs 0.00 0.00 - 0.01 K/cumm [facility] Comment:Testing performed by : [facility] [place] [address] Blood 07/02/2024 1:24 PM NAPRAPATH 07/02/2024 1:24 PM NAPRAPATH Result [facility] Ellen Baltazar MD LAB BLOOD ORDERABLES Final Result Performing Organization Address City/[facility] Co de Phone Number DAVONTE MATTHIAS [address] [facility] [place] [address] * TSH (07/02/2024 1:24 PM NAPRAPATH) Thyroid Stimulating Hormone 1.45 0.30 - 4.20 mcIUnit/mL Comment:Testing performed by : [facility], [facility] [address], [place] [address] Blood 07/02/2024 1:24 PM NAPRAPATH 07/02/2024 1:24 PM NAPRAPATH Result [facility] Ellen Baltazar MD LAB BLOOD ORDERABLES Final Result Performing Organization Address [facility] de Phone Number DAVONTE RIZZO [address] [place], [place] [id number] * (ABNORMAL) Hemoglobin A1c (07/02/2024 1:24 PM NAPRAPATH) Hgb A1C 5.7(H) 4.0 - 5.6 % Estimated Average Glucose 117 mg/dL DAVONTE RIZZO Comment: The ADA recommends reporting an estimated Average Glucose (eAG) with all Hemoglobin A1c results using the equation derived from a study of 507 normal and diabetic adults. Minority populations were underrepresented and children were not included. (Diabetes Care 31:5933-7511, 2008). The eAG is not equivalent to a fasting glucose. Blood 07/02/2024 1:24 PM NAPRAPATH 07/02/2024 4:40 PM NAPRAPATH Result [facility] Ellen Baltazar MD LAB BLOOD ORDERABLES Final Result Performing Organization Address [facility] Co de Phone Number DAVONTE RIZZO [address] [facility] [address] [place], [place] [id number] * (ABNORMAL) Lipid panel (07/02/2024 1:24 PM NAPRAPATH) Cholesterol 136 30 - 199 mg/dL Comment: Interpretive Data Ages < or = 19 years Acceptable: <170 mg/dL Borderline high: 170-199 mg/dL High: >or= 200 mg/dL Ages > or = 20 years Desirable: <200 mg/dL Borderline high: 200-239 mg/dL High: >or= 240 mg/dL Literature References: 1. Expert Panel on Integrated Guidelines for Cardiovascular Health and Risk Reduction in Children and Adolescents. Pediatrics 2011;128:S213 2. NCEP Expert Panel. Circulation 2004;110:227 Current Interpretive Data was last revised on 2018. Testing performed by: [facility], [address] [place] [address] Triglycerides 166(H) <=149 mg/dL [facility] Comment: Interpretive Data Ages < or = 9 years Acceptable: <75 mg/dL Borderline high: 75-99 mg/dL High: >or= 100 mg/dL Ages 10 to 20 years Acceptable: <90 mg/dL Borderline high: 90-129 mg/dL High: >or= 130 mg/dL Ages > or = 20 years Desirable: <150 mg/dL Borderline high: 150-199 mg/dL High: 200-499 mg/dL Very high: >or= 499 mg/dL Literature References: 1. Expert Panel on Integrated Guidelines for Cardiovascular Health and Risk Reduction in Children and Adolescents. Pediatrics 2011;128:S213 2. NCEP Expert Panel. Circulation 2004;110:227 Current Interpretive Data was last revised on 2018. Testing performed by: [facility], [address] [place] [address] HDL 36(L) >=40 mg/dL [facility] Comment: Interpretive Data Ages < or = 19 years Acceptable: >45 mg/dL Borderline low: 40-45 mg/dL Low: <40 mg/dL Ages > or = 20 years Desirable: >or= 60 mg/dL Low: <40 mg/dL Literature References: 1. Expert Panel on Integrated Guidelines for Cardiovascular Health and Risk Reduction in Children and Adolescents. Pediatrics 2011;128:S213 2. NCEP Expert Panel. Circulation 2004;110:227 Current Interpretive Data was last revised on 2018. Testing performed by: [facility], [address] [place] [address] LDL, calculated 72 <=129 mg/dL [facility] Comment: Interpretive Data Ages < or = 19 years Acceptable: <110 mg/dL Borderline high: 110-129 mg/dL High: >or= 130 mg/dL Ages > or = 20 years Optimal: <100 mg/dL Near optimal: 100-129 mg/dL Borderline high: 130-159 mg/dL High: >160 mg/dL Calculated using the Honorio LDL-C estimating equation. This equation was implemented on 2024. Prior to this date LDL-C was estimated using the Friedewald equation. Literature References: 1. Expert Panel on Integrated Guidelines for Cardiovascular Health and Risk Reduction in Children and Adolescents. Pediatrics 2011;128:S213 2. NCEP Expert Panel. Circulation 2004;110:227 3. Honorio Corona et al. PHUONG Cardiol. 2020 October 24;5(5):540-548. doi: [email or web address] Current Interpretive Data was last revised on 2024. Testing performed by: [facility], [place] [address] Non-HDL Cholesterol 100 mg/dL DAVONTE RIZZO Comment: Interpretive Data Ages < or = 19 years Acceptable: <120 mg/dL Borderline high: 120-144 mg/dL High: >145 mg/dL Ages > or = 20 years When triglycerides are >200 mg/dL, Non-HDL cholesterol is a secondary target of therapy with treatment goals that are 30 mg/dL greater than the LDL cholesterol target. Literature References: 1. Expert Panel on Integrated Guidelines for Cardiovascular Health and Risk Reduction in Children and Adolescents. Pediatrics 2011;128:S213 2. NCEP Expert Panel. Circulation 2004;110:227 Current Interpretive Data was last revised on 2018. Testing performed by: [facility] [address], [place] [address] Chol/HDL ratio 4 DAVONTE RIZZO Comment:Testing performed by : [facility] [address], [place] [address] Blood 07/02/2024 1:24 PM NAPRAPATH 07/02/2024 1:24 PM NAPRAPATH Ellen Baltazar MD LAB BLOOD ORDERABLES Final Result DAVONTE RIZZO [address] Department [place] [address] * Comprehensive metabolic panel (07/02/2024 1:24 PM NAPRAPATH) Sodium 142 135 - 145 mmol/L Comment:Testing performed by : [facility] [address], [place] [address] Potassium, pl 3.9 3.3 - 4.9 mmol/L [facility] Comment:Testing performed by : [facility] [address], [place] [address] Chloride 106 97 - 110 mmol/L [facility] Comment:Testing performed by : [facility] [address], [place] [address] CO2 24 22 - 32 mmol/L [facility] Comment:Testing performed by : [facility] [address], [place] [address] Anion gap 12 2 - 15 mmol/L [facility] Comment:Testing performed by : [facility] [address], [place] [address] BUN 10 6 - 25 mg/dL [facility] Comment:Testing performed by : [facility] [address], [place] [address] Creatinine 0.94 0.60 - 1.10 mg/dL [facility] Comment:Testing performed by : [facility] [address], [place] [address] Glucose 111 70 - 199 mg/dL [facility] Comment: Interpretive Data Fasting glucose >/= 126 mg/dl is diagnostic for diabetes. Fasting is defined as no caloric intake for at least 8 hours. Fasting glucose between 100 mg/dl to 125 mg/dl is diagnostic of prediabetes. In a patient with classic symptoms of hyperglycemia or hyperglycemic crisis, a random glucose >/= 200 mg/dl is diagnostic for diabetes. In the absence of unequivocal hyperglycemia, results should be confirmed by repeat testing. The classification and Diagnosis of Diabetes Diabetes Care 2021; 46: S19-S40. Current interpretive data was last revised 2022. Testing performed by: [facility] [address], [place] [address] Calcium 9.4 8.5 - 10.3 mg/dL [facility] Comment:Testing performed by : [facility] [address], [place] [address] Bilirubin, total <0.2 0.1 - 1.2 mg/dL [facility] Comment:Testing performed by : [facility], [address], [place] [address] Protein, pl 7.8 6.5 - 8.5 g/dL [facility] Comment:Testing performed by : [facility], [address], [place] [address] Albumin 4.0 3.5 - 5.0 g/dL [facility] Comment:Testing performed by : [facility], [facility] [place] [address] Alk phos 72 40 - 130 Units/L [facility] Comment:Testing performed by : [facility], [address], [place] [address] ALT 37 7 - 45 Units/L [facility] Comment:Testing performed by : [facility], [address] [place] [address] AST 26 10 - 45 Units/L [facility] Comment:Testing performed by : [facility], [facility] [place] [address] Blood 07/02/2024 1:24 PM NAPRAPATH 07/02/2024 1:24 PM NAPRAPATH Ellen Baltazar MD LAB BLOOD ORDERABLES Final Result [facility] [address] Department [place] [address] * COLONOSCOPY (12/07/2018 9:00 AM CDT) Anatomical Region Laterality Modality Other Narrative Procedure Note Ru Delgado MD - 12/07/2018 9:00 AM CDT - [facility] Endoscopy Lab Patient Name: Zara Lora Procedure Date: 12/07/2018 9:00 AM Date of : 1975 Admit Type: Outpatient Age: 43 Gender: Female Note Status: Finalized Attending MD: Ru Delgado M.D. Procedure Date: 12/07/2018 Procedure: Colonoscopy Indications: Follow-up of diverticulitis Providers: Ru Delgado M.D., Diane Del Rosario (Anesthesia Staff),Ovidio Sibley RN Referring MD: Ellen Baltazar M.D. Medicines: Monitored Anesthesia Care Complications: No immediate complications. Estimated Blood Loss: Estimated blood loss: none. Procedure: Pre-Anesthesia Assessment: - Airway Examination: normal oropharyngeal airwayand neck mobility. - Respiratory Examination: clear to auscultation. - ASA Grade Assessment: III - A patient with severe systemic disease. - After reviewing the risks and benefits, thepatient was deemed in satisfactory condition to undergo the procedure. - The risks and benefits of the procedure and the sedation options and risks were discussed with the patient. All questions were answered and informed consent was obtained. After I obtained informed consent, the scope waspassed under direct vision. Throughout the procedure, the patient's blood pressure, pulse, and oxygensaturations were monitored continuously. The scope was passedunder direct vision. The Colonoscope CF-Q180 [id number] introduced through the sigmoid colostomy andadvanced to the the cecum, identified by the appendiceal orifice, ileocecal valve and palpation. Thecolonoscopy was performed with ease. The patient tolerated the procedure well. The quality of the bowel preparation was fair. The bowel preparation used was SUPREP. Findings: The perianal and digital rectal examinations were normal. The colon (entire examined portion) appeared normal. A 3 mm polyp was found in the rectum. The polyp was sessile. Thepolyp was removed with a cold biopsy forceps. Resection and retrieval were complete. Estimated blood loss: none. The retroflexed view of the distal rectum and anal verge was normaland showed no anal or rectal abnormalities. Impression: - The entire examined colon is normal. -Heidy's pouch examined. One 3 mm polyp in the rectum. Resected and retrieved. - The distal rectum and anal verge are normal on retroflexion view. Recommendation: - Discharge patient to home (ambulatory). - Await pathology results. - Repeat colonoscopy in 5 years for surveillancebased on pathology results. - Refer to a surgeon today. Procedure Code(s): --- Professional --- 74816, Colonoscopy through stoma; with biopsy,single or multiple Diagnosis Code(s): --- Professional --- K62.1, Rectal polyp K57.32, Diverticulitis of large intestine without perforation or abscess without bleeding CPT copyright 2017 [employer]. All rights reserved. The codes documented in this report are preliminary and upon pickling solution maker reviewmay be revised to meet current compliance requirements. Electronically signed by Ru Delgado MD Ru Delgado M.D. 12/07/2018 9:52:29 AM Number of Addenda: 0 Note Initiated On: 12/07/2018 9:00 AM Ru Delgado MD ENDOSCOPY PROCEDURES Final Resul t * Hepatitis panel, acute (03/09/2018 11:37 AM CDT) Hep A IgM Negative Negative [facility] Hep B core IgM Negative Negative [facility] Hep C Ab Negative Negative [facility] HepBsAg Negative Negative [facility] Blood specimen (specimen) 03/09/2018 11:37 AM CDT 03/09/2018 3:42 PM CDT Narrative [facility] - 03/09/2018 5:36 PM CDT Kailee Chairez [employer] LAB MICROBIOLOGY - GENERAL O RDERABLES Final Result [facility] [address] [facility] Department [place] [address] from Last 3 Months or Most Recently Relevant to Health Maintenance Insurance [facility] Advance Directives For more information, please contact: [phone] * Full Code (Latest Code Status on File) Date Activated Date Inactivated Comments 07/18/2020 2:09 AM 07/27/2020 6:04 PM * Full Code Date Activated Date Inactivated Comments 07/05/2019 3:01 PM 07/09/2019 7:03 PM * Full Code Date Activated Date Inactivated Comments 04/17/2018 3:47 PM 05/01/2018 8:54 PM * Full Code Date Activated Date Inactivated Comments 03/23/2018 12:15 PM 03/30/2018 7:20 PM Care Teams High Raw Sugar Boiler Relationship Specialty Start Date End Date Ellen Baltazar MD [address] [facility] [address] [place] [address] PCP - General Internal Medicine 04/27/17 Koko Unger MD [address] [facility] [address] [place] [address] Surgeon Colon and Rectal Surgery 05/01/18
--- OUTSIDE RECORDS SUMMARY | 2024-09-19 15:26 | XMS_ITS | Clinical Summary ---
Author Organization [facility] Address [address] [place] [address] Care Team Providers Care Weed Thinner Name Role Phone Ellen Baltazar MD Primary Care Provider +- [phone] Koko Unger MD Unavailable [phone] Allergies No known active allergies Medications naloxone [...] 08/07/2022 Assessment & Plan (07/02/2024 2:33 PM OUTBOUND TELEMARKETING REPRESENTATIVE): Continue Metoprolol 25mg a day Assessment & Plan (03/27/2024 7:08 AM CDT): Will increase Amlodipine to 5mg a day Assessment & Plan (08/26/2023 9:36 AM OUTBOUND TELEMARKETING REPRESENTATIVE): Continue Amlodipine 2.5mg once a day Assessment & Plan (12/06/2022 8:50 AM CDT): Continue Amlodipine 2.5mg once a day Assessment & Plan (08/07/2022 3:24 PM OUTBOUND TELEMARKETING REPRESENTATIVE): Start Amlodipine 2.5mg a day Irregular menstrual cycle 09/29/2021 Assessment & Plan (03/02/2022 7:30 PM CDT): Resolving Assessment & Plan (11/19/2021 8:53 AM CDT): Will continue to monitor Assessment & Plan (09/29/2021 2:31 PM CDT): Patient to follow up with WATCHMAKING TEACHER Morbid obesity with BMI of 45.0-49.9, adult 03/27 Assessment & Plan (03/27/2024 7:04 AM CDT): Patient to decrease intake and increase activity Assessment & Plan (08/26/2023 9:31 AM OUTBOUND TELEMARKETING REPRESENTATIVE): Decrease intake and increase activity Assessment & Plan (12/06/2022 8:49 AM CDT): Will start Mounjaro 2.5mg once a week Assessment & Plan (08/07/2022 3:14 PM OUTBOUND TELEMARKETING REPRESENTATIVE): Decrease intake and increase activity Assessment & Plan (03/02/2022 7:38 PM CDT): Decrease intake and increase activity Assessment & Plan (11/19/2021 8:54 AM CDT): Decrease intake and increase activity Assessment & Plan (09/29/2021 2:25 PM CDT): Decrease intake and increase activity Assessment & Plan (06/30/2021 8:17 PM OUTBOUND TELEMARKETING REPRESENTATIVE): Decrease intake and increase activity Assessment & Plan (05/15/2021 10:01 PM OUTBOUND TELEMARKETING REPRESENTATIVE): Decrease intake and increase activity Assessment & Plan (04/18/2021 9:13 PM CDT): Decrease intake and increase activity Morbid obesity with BMI of 40.0-44.9, adult 03/27 Assessment & Plan (07/02/2024 2:29 PM OUTBOUND TELEMARKETING REPRESENTATIVE): Patient to decrease intake and increase activity Assessment & Plan (03/27/2024 7:04 AM CDT): Patient to decrease intake and increase activity Assessment & Plan (08/26/2023 9:32 AM OUTBOUND TELEMARKETING REPRESENTATIVE): Decrease intake and increase activity Assessment & Plan (12/06/2022 8:50 AM CDT): Decrease intake and increase activity Assessment & Plan (08/07/2022 3:14 PM OUTBOUND TELEMARKETING REPRESENTATIVE): Decrease intake and increase activity Assessment & Plan (03/02/2022 7:39 PM CDT): Decrease intake and increase activity Assessment & Plan (11/19/2021 8:54 AM CDT): Decrease intake and increase activity Assessment & Plan (09/29/2021 2:26 PM CDT): Decrease intake and increase activity Assessment & Plan (05/15/2021 10:02 PM OUTBOUND TELEMARKETING REPRESENTATIVE): Decrease intake and increase activity Assessment & Plan (04/18/2021 9:14 PM CDT): Decrease intake and increase activity Incarcerated hernia 07/18/2020 Assessment & Plan (08/11/2020 10:02 AM OUTBOUND TELEMARKETING REPRESENTATIVE): Patient was admitted on 07/17/2020 for an [...] day Assessment & Plan (06/30/2021 8:21 PM OUTBOUND TELEMARKETING REPRESENTATIVE): Will change to Venlafaxine 75mg a day. Will stop bupropion Assessment & Plan (04/18/2021 9:18 PM CDT): Patient to start Bupropion XL 150mg a day Assessment & Plan (08/04/2020 8:41 AM OUTBOUND TELEMARKETING REPRESENTATIVE): Stable. Patient to continue Buspirone 10 mg prn for anxiety. Will monitor. Assessment & Plan (10/13/2019 4:17 PM CDT): Continue buspirone as needed Periumbilical abdominal pain 10/13/2019 Assessment & Plan (10/13/2019 4:45 PM CDT): Patient to with surgeon for possible umbilical hernia if symptoms progress. Use tramadol as needed Iron deficiency 07/30/2019 Assessment & Plan (07/30/2019 9:42 AM OUTBOUND TELEMARKETING REPRESENTATIVE): patient's last H&H 9.9&34.2 on 07/09/2019. She is compliant with iron supplements. Continue current management; will monitor. Anxiety 07/30/2019 Assessment & Plan (07/02/2024 2:32 PM OUTBOUND TELEMARKETING REPRESENTATIVE): Continue Clonazepam 0.5mg once a day and Hydroxyzine 25mg one tablet BID PRN. Will not stop the Clonazepam today because of elevated heart rate. Assessment & Plan (03/27/2024 7:07 AM CDT): Will continue slow wean of Clonazepam. Will continue Clonazepam 05mg a day. Will start Hydroxyzine 25mg twice a day Assessment & Plan (08/26/2023 9:33 AM OUTBOUND TELEMARKETING REPRESENTATIVE): Continue Clonazepam 0.5mg one tablet BID PRN Assessment & Plan (12/06/2022 8:51 AM CDT): Continue Clonazepam 0.5mg twice a day Assessment & Plan (08/07/2022 3:16 PM OUTBOUND TELEMARKETING REPRESENTATIVE): Continue Clonazepam 0.5mg twice a day Assessment & Plan (03/02/2022 7:27 PM CDT): Patient to continue Clonazepam 0.5mg once a day Assessment & Plan (11/19/2021 8:52 AM CDT): Continue Clonazepam 0.5mg a day. Assessment & Plan (09/29/2021 2:28 PM CDT): Continue Buspirone 10mg TID PRN Assessment & Plan (06/30/2021 8:20 PM OUTBOUND TELEMARKETING REPRESENTATIVE): Patient to to Buspirone 10mg TID PRN Assessment & Plan (05/15/2021 10:04 PM OUTBOUND TELEMARKETING REPRESENTATIVE): Continue Buspirone 10mg a day Assessment & Plan (04/18/2021 9:19 PM CDT): Patient to take buspirone 10mg TID PRN Assessment & Plan (07/30/2019 9:45 AM OUTBOUND TELEMARKETING REPRESENTATIVE): Stable. Continue current management with good exercise regimen. Will continue to monitor. H/O ventral hernia repair w/o mesh 07/30/2019 Overview (07/30/2019): Performed by Dr. Unger, general surgery, on 07/05/2019 Assessment & Plan (11/19/2021 8:55 AM CDT): Patient to continue Tramadol as needed Assessment & Plan (08/04/2020 3:22 PM OUTBOUND TELEMARKETING REPRESENTATIVE): Will continue with tramadol as needed for pain. Follow up with surgeon. Assessment & Plan (07/30/2019 9:44 AM OUTBOUND TELEMARKETING REPRESENTATIVE): Performed by Dr. Unger, general surgery, on [...] 07/05/2019 Assessment & Plan (07/30/2019 9:44 AM OUTBOUND TELEMARKETING REPRESENTATIVE): Performed by Dr. Unger, general surgery, on [...] (03/07/2019): Added automatically from request for surgery [id number] Colostomy care 04/24/2018 Assessment & Plan (05/30/2018 9:24 AM OUTBOUND TELEMARKETING REPRESENTATIVE): Discussed colostomy care-patient able to care for colostomy independently Gastrointestinal hemorrhage 04/17/2018 Overview (04/18/2018): Added automatically from request for surgery [id number] Pelvic abscess in female 03/23/2018 Diverticulitis 03/23/2018 Umbilical hernia 03/23/2018 Sepsis 03/23/2018 Normocytic anemia 03/23/2018 Thrombocytosis 03/23/2018 GERD (gastroesophageal reflux disease) Thrombocytopenia Ventral hernia without obstruction or gangrene Assessment & Plan (07/02/2024 2:34 PM OUTBOUND TELEMARKETING REPRESENTATIVE): Continue Tramadol 50mg TID PRN Assessment & Plan (08/26/2023 9:35 AM OUTBOUND TELEMARKETING REPRESENTATIVE): Continue follow up with surgeon Assessment & Plan (12/06/2022 8:52 AM CDT): Continue Follow up with surgeon. Continue Tramadol as needed Assessment & Plan (08/07/2022 3:19 PM OUTBOUND TELEMARKETING REPRESENTATIVE): Patient cautioned about signs and symptoms of incarcerated hernia. Continue Tramadol as needed for pain. Assessment & Plan (03/02/2022 7:29 PM CDT): Continue Tramadol as needed. Follow up with surgeon. Recommend weight loss Assessment & Plan (11/28/2021 6:07 PM CDT): Continue Tramadol as needed Assessment & Plan (09/29/2021 2:29 PM CDT): Continue Tramadol as needed Assessment & Plan (06/30/2021 8:22 PM OUTBOUND TELEMARKETING REPRESENTATIVE): Will continue Tramadol for pain. Follow up with surgeon for increase pain. Assessment & Plan (05/15/2021 10:08 PM OUTBOUND TELEMARKETING REPRESENTATIVE): Continue follow up with surgery. Continue to encourage weight loss. Assessment & Plan (04/18/2021 9:23 PM CDT): Patient to follow up surgeon Tachycardia Assessment & Plan (07/03/2024 6:12 PM OUTBOUND TELEMARKETING REPRESENTATIVE): Will have patient to obtain echo . Will check electrolytes Assessment & Plan (03/27/2024 7:13 AM CDT): Will have patient to obtain Echo because of the Tachycardia Assessment & Plan (07/30/2019 10:25 AM OUTBOUND TELEMARKETING REPRESENTATIVE): EKG in office today showed non-specific ST changes, which appear to be unchanged since her pre-op testing. Will order D-dimer; if this is positive, will order CT PE and bilateral LE venous dopplers. Will monitor. SBO (small bowel obstruction) Suspected UTI Resolved Problems Problem Noted Date Diagnosed Date Resolved Date Acute blood loss anemia 04/17/201808/25 Overview (04/18/2018): Added automatically from request for surgery [id number] BMI 40.0-44.9, adult 03/27/2018 025 Assessment & Plan (07/02/2024 2:30 PM OUTBOUND TELEMARKETING REPRESENTATIVE): Decrease intake and increase activity Colitis 03/23/2018 09/16/2024 Dehydration 03/23/2018 09/16/2024 Abscess 09/16/2024 Encounters Date Type Department Care Team Description 09/16/2024 Orders Only [facility] Medical [facility] Primary Care at [facility] - [address] [place], [place] [phone] Ellen Baltazar MD 09/16/2024 Orders Only [facility] Primary Care at [facility] - [address] [place] [phone] Ellen Baltazar MD 07/19/2024 ACO Quality [facility] Accountable Care Organization [address] [place] [id number] Zara Alston 07/05/2024 Telephone [facility] [address] [phone] Ellen Baltazar MD 07/02/2024 2:30 PM OUTBOUND TELEMARKETING REPRESENTATIVE Office Visit [facility] [address] [phone] Ellen Baltazar MD Tachycardia (Primary Dx); Morbid obesity with BMI of 40.0-44.9, adult (HCC); BMI 40.0-44.9, adult (HCC); Anxiety; Hypertension, essential; Ventral hernia without obstruction or gangrene; Encounter for screening mammogram for malignant neoplasm of breast 07/02/2024 1:25 PM OUTBOUND TELEMARKETING REPRESENTATIVE Lab [address] [phone] Routine lab draw from Last 3 Months Immunizations Immunization Administration Dates Next Due Influenza, Quadrivalent, Spl it, Preservative Free, Intramuscular 04/16/2021 Influenza, Trivalent, Preser vative Free, Intramuscular 04/21/2014 Influenza, Unspecified 06/23/2023(Deferr ed: Patient Refused),08/02/2022(Deferred: Patient decision),06/24/2022(Deferred: Patient Refused),11/19/2021(Deferred: Patient Refused) Pfizer SARS-CoV-2 Monovalent Vaccination (12+ Yrs) PURPLE 07/25/2021,06/25/2021 Tdap 08/24/2017 Surgical History Surgery Date Site/Laterality Comments CHOLECYSTECTOMY ANAL FISSURECTOMY IR PICC LINE PLACEMENT > 5 YEARS 03/28/2018 N/A IR PICC LINE PLACEMENT > 5 YEARS 04/19/2018 N/A COLOSTOMY perforated diverticulitis ESOPHAGEAL DILATION CT GUIDED PARACENTESIS 12/03/2020 N/A Medical History Medical History Date Comments GERD (gastroesophageal reflux disease) Iron deficiency Diverticulitis of colon History of transfusion Family History Medical History Relation Name Comments Diverticulitis Father Hypertension Father Hypertension Mother Colon cancer Mother's Sister COPD Paternal Grandmother Relation Name Status Comments Father Alive Mother Alive Mother's Sister Pt's aunt ashley ssed away from metastatic colon cancer in her early 40s. 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 Not on file Not on file Obstetrics History Last Filed Vital Signs Vital Sign Reading Time Taken Comments Blood Pressure 130/90 07/02/2024 2:12 PM OUTBOUND TELEMARKETING REPRESENTATIVE Pulse 128 07/02/2024 2:12 PM OUTBOUND TELEMARKETING REPRESENTATIVE Temperature 37.1 C (98.7 F) 03/26/2024 2:34 PM CDT Respiratory Rate 18 07/02/2024 2:12 PM OUTBOUND TELEMARKETING REPRESENTATIVE Oxygen Saturation 97% 07/02/2024 2:12 PM OUTBOUND TELEMARKETING REPRESENTATIVE Inhaled Oxygen Concentration - - Weight 111.6 kg (246 lb) 07/02/2024 2:12 PM OUTBOUND TELEMARKETING REPRESENTATIVE Height 157.5 cm (5' 2.01 ) 07/02/2024 2:12 PM CS T Body Mass Index 44.98 07/02/2024 2:12 PM OUTBOUND TELEMARKETING REPRESENTATIVE Plan of Treatment Health Maintenance Due Date Last Done Comments Breast Cancer Screening-Mammogram 1975 Cervical Cancer Screening 1975 Hepatitis B Screening 1993 Regular Well Visit/Exam 18-64 08/02/2023 08/02/2022, 08/24/2017 Covid-19 Vaccine ( season) 2024 07/25/2021, 06/25/2021 Depression Screening 03/26/2025 03/26/2024, 03/26/2024, 08/11/2023, Additional history exists DTaP/Tdap/Td Vaccine (2 - Td or Tdap) 08/25/2027 08/24/2017 Colon Cancer Screening-Colonoscopy 12/07/2028 12/07/2018 Hepatitis C Screening Completed 03/09/2018 Influenza Vaccine Discontinued 04/16/2021, 04/21/2014 Pneumococcal vaccine <65 Aged Out No longer eligible based on patient's age to complete this topic Medical Devices Implanted Type Area Stock Grader Device Identifier Shelf Expiration Date Model / Serial / Lot [employer] [id number] Seprafilm 6x5in Barrier Adhesion Sterile Disposable Latex Free - [id number] Implanted:Qty: 2 on 04/20/2018 by Koko Unger MD at [facility] [employer] 11/24/2019 [id number] / / [id number] [employer] 186652 Seprafilm 6x5in Barrier Adhesion Sterile Disposable Latex Free - [id number] Implanted:Qty: 4 on 04/20/2018 by Koko Unger MD at [facility] Abdomen [employer] 12/24/2019 [id number] / / [id number] [employer] [id number] Seprafilm 6x5in Barrier Adhesion Sterile Disposable Latex Free - [id number] Implanted:Qty: 1 on 07/05/2019 by Koko Unger MD at [facility] N/A: Abdomen [employer] 12/23/2020 [id number] / / [id number] [employer] 236931 Seprafilm 6x5in Barrier Adhesion Sterile Disposable Latex Free - [id number] Implanted:Qty: 1 on 07/05/2019 by Koko Unger MD at [facility] N/A: Abdomen [employer] 02/23/2022 [id number] / / [id number] [employer] [id number] Seprafilm 6x5in Barrier Adhesion Sterile Disposable Latex Free - [id number] Implanted:Qty: 1 on 07/21/2020 by Koko Unger MD at [facility] N/A: Abdomen [facility] 11/28/2022 [id number] / / [id number] [employer] [id number] Seprafilm 6x5in Barrier Adhesion Sterile Disposable Latex Free - [id number] Implanted:Qty: 1 on 07/21/2020 by Koko Unger MD at [facility] N/A: Abdomen [facility] 12/05/2022 [id number] / / [id number] [employer] [id number] Ventralight St Sepra Echo Ps L10 In X W6 In Monofilament Light Latex Free - [id number] Implanted:Qty: 1 on 07/21/2020 by Koko Unger MD at [facility] N/A: Abdomen [employer] 08/23/2020 [id number] / / [id number] [employer] 842335 Seprafilm 6x5in Barrier Adhesion Sterile Disposable Latex Free - [id number] Implanted:Qty: 1 on 07/21/2020 by Koko Unger MD at [facility] N/A: Abdomen [facility] 12/05/2022 [id number] / / [id number] [employer] [id number] Seprafilm 6x5in Barrier Adhesion Sterile Disposable Latex Free - [id number] Implanted:Qty: 1 on 07/21/2020 by Koko Unger MD at [facility] N/A: Abdomen [facility] 12/05/2022 [id number] / / [id number] [employer] 779509 Seprafilm 6x5in Barrier Adhesion Sterile Disposable Latex Free - [id number] Implanted:Qty: 1 on 07/21/2020 by Koko Unger MD at [facility] N/A: Abdomen [facility] 12/05/2022 [id number] / / [id number] [employer] 629691 Seprafilm 6x5in Barrier Adhesion Sterile Disposable Latex Free - [id number] Implanted:Qty: 1 on 07/21/2020 by Koko Unger MD at [facility] N/A: Abdomen [facility] 12/05/2022 [id number] / / [id number] Procedures Procedure Name Priority Date/Time Associated Diagnosis Comments URINALYSIS, MICROSCOPIC ONLY Routine 07/02/2024 1:29 PM OUTBOUND TELEMARKETING REPRESENTATIVE Routine lab draw URINALYSIS AND REFLEX TO MICROSCOPIC AND CULTURE Routine 07/02/2024 1:29 PM OUTBOUND TELEMARKETING REPRESENTATIVE Routine lab draw EGFR Routine 07/02/2024 1:24 PM OUTBOUND TELEMARKETING REPRESENTATIVE Routine lab draw DIFFERENTIAL AUTO Routine 07/02/2024 1:2 4 PM OUTBOUND TELEMARKETING REPRESENTATIVE Routine lab draw LIPID PANEL Routine 07/02/2024 1:24 PM OUTBOUND TELEMARKETING REPRESENTATIVE Routine lab draw HEMOGLOBIN A1C Routine 07/02/2024 1:24 PM OUTBOUND TELEMARKETING REPRESENTATIVE Routine lab draw COMPREHENSIVE METABOLIC PANEL Routine 07/02/2024 1:24 PM OUTBOUND TELEMARKETING REPRESENTATIVE Routine lab draw CBC WITH AUTO DIFFERENTIAL Routine 07/02/2024 1:24 PM OUTBOUND TELEMARKETING REPRESENTATIVE Routine lab draw TSH Routine 07/02/2024 1:24 PM OUTBOUND TELEMARKETING REPRESENTATIVE Routine lab draw COLONOSCOPY 12/07/2018 9:00 AM CDT HEPATITIS PANEL, ACUTE Routine 8 11:37 AM CDT Gastroesophageal reflux disease with esophagitis Generalized abdominal or pelvic swelling or mass or lump Blood in the stool Unintentional weight loss from Last 3 Months or Most Recently Relevant to Health Maintenance Results * (ABNORMAL) Urinalysis reflex to microscopic and culture Urine, clean voided (07/02/2024 1:29 PM OUTBOUND TELEMARKETING REPRESENTATIVE) Color, ur Yellow Yellow Comment:[facility] [place] [address] Clarity, ur Turbid(A) Clear CERNER Comment:[facility] performed [facility] : [facility] [place] [address] Specific gravity, ur 1.047(H) 1.003 - 1.030 CERNER Comment:Testing performed by : [facility] [place] [address] pH, urine 6.0 CERNER Comment: Interpretive Data U rine pH is affected by diet, medications, systemic acid-base disturbances, and renal tubular function. pH may affect urinary stone formation. For example, urine pH below 6.0 may help reduce the tendency for calcium phosphate stones and pH greater than 6.0 may reduce the tendency for uric acid stone formation. Source: [facility] [employer] Current Interpretive Data was last revised on 2017 Testing performed by: [facility] [place] [address] Protein, ur ql 1+(A) Negative CERNER CH Comment:Testing performed by : [facility] [address], [place] [address] Glucose, ur ql Negative Negative CERNER CH Comment:Testing performed by : [facility] [place] [address] Ketones, ur Trace Negative CERNER Comment:Testing performed by : [facility] [place] [address] Bilirubin, ur Negative Negative DAVONTE Comment:Testing performed by : [facility], [place] [address] Blood, ur Negative Negative DAVONTE Comment:Testing performed by : [facility] [place] [address] Urobilinogen, ur 2.0(A) <2.0 mg/dL DAV[facility]TE Comment:Testing performed by : [facility] [place] [address] Nitrite, ur Negative Negative DAVONTE Comment:Testing performed by : [facility] [place] [address] Leukocyte esterase, ur Negative Negative ADVONTE Comment:Testing performed by : [facility] [place] [address] UA reflex comment Reflex to microscopic UA will be performed. DAVONTE Comment:Testing performed by : [facility] [place] [address] Urine, clean voided 07/02/2024 1:29 PM OUTBOUND TELEMARKETING REPRESENTATIVE 07/02/2024 1:29 PM OUTBOUND TELEMARKETING REPRESENTATIVE Ellen Baltazar MD LAB MICROBIOLOGY - GENERAL ORDERABLES Final Result [facility] [address] [address] Department [place] [address] * (ABNORMAL) Urinalysis, microscopic only (07/02/2024 1:29 PM OUTBOUND TELEMARKETING REPRESENTATIVE) WBC, ur 0-5 0 - 5 Comment:Testing performed by : [facility] [place] [address] RBC, ur 6-10(A) 0 - 2 /HPF DAVONTE Comment:Testing performed by : [facility] [place] [address] Epithelial cells, squamous, ur >50(A) 0 - 5 /HPF DAVONTE Comment:Testing performed by : [facility], [place] [address] Bacteria, ur 1+(A) DAVONTE Comment:Testing performed by : [facility], [place] [address] Mucous, ur Present(A) [facility] RIZZO Comment:Testing performed by : [facility], [address] [place] [address] Culture Reflex Comment Reflex conditions for urine culture (WBC >10) not met. DAVONTE RIZZO Comment:Testing performed by : [facility], [address] [place] [address] Urine, clean voided 07/02/2024 1:29 PM OUTBOUND TELEMARKETING REPRESENTATIVE 07/02/2024 1:50 PM OUTBOUND TELEMARKETING REPRESENTATIVE Ellen Baltazar MD LAB URINE ORDERABLES Final Result [facility] [id number] Department [place] [address] * eGFR (07/02/2024 1:24 PM OUTBOUND TELEMARKETING REPRESENTATIVE) eGFR 74 >=60 mL/min/1. 73 m2 Comment: [...] Inclusion of Race in Diagnosing Kidney Disease, JASN 2020). The CKD-EPI equation should not be used for patients with unstable renal function and has not been validated in children and those over 70. Current interpretive data was last reviewed 2021. Testing performed by: [facility], [place] [address] Blood 07/02/2024 1:24 PM OUTBOUND TELEMARKETING REPRESENTATIVE 07/02/2024 1:24 PM OUTBOUND TELEMARKETING REPRESENTATIVE Ellen Baltazar MD LAB BLOOD ORDERABLES Final Result [facility] [address] [address] Department [place] [address] * Differential, auto (07/02/2024 1:24 PM OUTBOUND TELEMARKETING REPRESENTATIVE) Neutrophil abs 5.2 1.5 - 6.5 K/cumm Comment:Testing performed by : [facility], [facility] [place] [address] Imm gran abs 0.0 0.0 - 0.1 K/cumm CERNER Comment:Testing performed by : [facility], [facility] [place] [address] Lymphocyte abs 1.6 0.8 - 3.3 K/cumm CERNER Comment:Testing performed by : [address] [place] [address] [place] [address] Monocyte abs 0.5 0.2 - 0.8 K/cumm CERNER Comment:Testing performed by : [address] [place] [address] Eosinophil abs 0.1 0.0 - 0.5 K/cumm CERNER Comment:Testing performed by : [address] [place] [address] [place] [address] Basophil abs 0.0 0.0 - 0.1 K/cumm CERNER Comment:Testing performed by : [address] [place] [address] Neutrophil pct 69.0 % CERNER Comment: Interpretive Data Percent cell count reference ranges are not reported, since discordance with absolute values may lead to misinterpretation of CBC data. Current Interpretive Data was last revised on 2017. Testing performed by: [address] [address] Imm gran pct 0.3 % CERNER Comment: Interpretive Data Percent cell count reference ranges are not reported, since discordance with absolute values may lead to misinterpretation of CBC data. Current Interpretive Data was last revised on 2017. Testing performed by: [facility] [place] [address] Lymphocyte pct 21.8 % CERNER Comment: Interpretive Data Percent cell count reference ranges are not reported, since discordance with absolute values may lead to misinterpretation of CBC data. Current Interpretive Data was last revised on 2017. Testing performed by: [facility] [address], [place] [address] Monocyte pct 6.9 % DAVONTE Comment: Interpretive Data Percent cell count reference ranges are not reported, since discordance with absolute values may lead to misinterpretation of CBC data. Current Interpretive Data was last revised on 2017. Testing performed by: [facility] [address], [place] [address] Eosinophil pct 1.5 % DAVONTE Comment: Interpretive Data Percent cell count reference ranges are not reported, since discordance with absolute values may lead to misinterpretation of CBC data. Current Interpretive Data was last revised on 2017. [facility] [place] [address] Basophil pct 0.5 % DAVONTE Comment: Interpretive Data Percent cell count reference ranges are not reported, since discordance with absolute values may lead to misinterpretation of CBC data. Current Interpretive Data was last revised on 2017. Testing performed by: [facility], [place] [address] Blood 07/02/2024 1:24 PM OUTBOUND TELEMARKETING REPRESENTATIVE 07/02/2024 1:24 PM OUTBOUND TELEMARKETING REPRESENTATIVE Ellen Baltazar MD LAB BLOOD ORDERABLES Final Result [facility] [id number] [address] Department [place] [address] * (ABNORMAL) CBC with auto differential (07/02/2024 1:24 PM OUTBOUND TELEMARKETING REPRESENTATIVE) WBC 7.5 3.8 - 9.9 K/cumm Comment:Testing [facility] : [facility], [place] [address] Hgb 12.8 11.9 - 15.5 g/dL DAVONTE Comment:Testing performed by : [facility] [address], [place] [address] Hct 40.1 35.6 - 45.5 % DAVONTE Comment:Testing performed by : [facility] [address] [place] [address] Plt 358 150 - 400 K/cumm DAVONTE Comment:Testing performed by : [facility] [place] [address] MPV 9.9 9.1 - 12.3 fL CERNER Comment:Testing performed by : [facility], [facility] [place] [address] RBC 4.41 3.90 - 5.20 M/cumm CERNER CH Comment:Testing performed by : [facility] [place], [place] [address] MCV 90.9 81.3 - 96.4 fL CERNER CH Comment:Testing performed by : [facility], [facility] [place] [address] MCH 29.0 27.1 - 33.3 pg CERNER CH Comment:Testing performed by : [facility] [address] [place] [address] MCHC 31.9(L) 32.3 - 35.7 g/dL CERNER CH Comment:Testing performed by : [facility] [address] [place], [place] [address] RDW CV 13.9 11.1 - 14.9 % CERNER Comment:Testing performed by : [facility] [place] [address] RDW SD 46.5 35.7 - 48.1 fL CERNER Comment:Testing performed by : [facility] [place] [address] NRBC abs 0.00 0.00 - 0.01 K/cumm DAVONTE Comment:Testing performed by : [facility] [place] [address] Blood 07/02/2024 1:24 PM OUTBOUND TELEMARKETING REPRESENTATIVE 07/02/2024 1:24 PM OUTBOUND TELEMARKETING REPRESENTATIVE us Ellen Baltazar MD LAB BLOOD ORDERABLES Final Result [facility] [address] Department [place] [address] * TSH (07/02/2024 1:24 PM OUTBOUND TELEMARKETING REPRESENTATIVE) Thyroid Stimulating Hormone 1.45 0.30 - 4.20 mcIUnit/mL Comment:Testing performed by : [facility] [address] [place] [address] Blood 07/02/2024 1:24 PM OUTBOUND TELEMARKETING REPRESENTATIVE 07/02/2024 1:24 PM OUTBOUND TELEMARKETING REPRESENTATIVE Ellen Baltazar MD LAB BLOOD ORDERABLES Final Result Performing Organization Address [facility] de Phone Number DAVONTE RIZZO [id number] [address] [facility] [place] [address] * (ABNORMAL) Hemoglobin A1c (07/02/2024 1:24 PM OUTBOUND TELEMARKETING REPRESENTATIVE) Hgb A1C 5.7(H) 4.0 - 5.6 % Estimated Average Glucose 117 mg/dL DAVONTE RIZZO Comment: The ADA recommends reporting an estimated Average Glucose (eAG) with all Hemoglobin A1c results using the equation derived from a study of 507 normal and diabetic adults. Minority populations were underrepresented and children were not included. (Diabetes Care 31:2736-9816, 2008). The eAG is not equivalent to a fasting glucose. Blood 07/02/2024 1:24 PM OUTBOUND TELEMARKETING REPRESENTATIVE 07/02/2024 4:40 PM OUTBOUND TELEMARKETING REPRESENTATIVE Ellen Baltazar MD LAB BLOOD ORDERABLES Final Result Performing Organization Address [facility] de Phone Number DAVONTE RIZZO [id number] [address] [facility] [place] [address] * (ABNORMAL) Lipid panel (07/02/2024 1:24 PM OUTBOUND TELEMARKETING REPRESENTATIVE) Cholesterol 136 30 - 199 mg/dL Comment: [...] last revised on 2018. Testing performed by: [facility], [place] [address] Triglycerides 166(H) <=149 mg/dL DAVONTE Comment: Interpretive Data Ages < or = [...] last revised on 2018. Testing performed by: [facility], [facility] [place] [address] HDL 36(L) >=40 mg/dL DAVONTE Comment: Interpretive Data Ages < or = [...] last revised on 2018. Testing performed by: [facility], [address] [place] [address] LDL, calculated 72 <=129 mg/dL DAVONTE Comment: Interpretive Data Ages < or = 19 years Acceptable: <110 mg/dL Borderline high: 110-129 mg/dL High: >or= 130 mg/dL Ages > or = 20 years Optimal: <100 mg/dL Near optimal: 100-129 mg/dL Borderline high: 130-159 mg/dL High: >160 mg/dL Calculated using the Olmedo LDL-C estimating equation. This equation was implemented [...] last revised on 2024. Testing performed by: [facility] [address], [place] [address] Non-HDL Cholesterol 100 mg/dL DAVONTE RIZZO Comment: [...] last revised on 2018. Testing performed by: [facility] [address], [place] [address] Chol/HDL ratio 4 DAVONTE Comment:Testing performed by : [facility] [address], [place] [address] Blood 07/02/2024 1:24 PM OUTBOUND TELEMARKETING REPRESENTATIVE 07/02/2024 1:24 PM OUTBOUND TELEMARKETING REPRESENTATIVE Ellen Baltazar MD LAB BLOOD ORDERABLES Final Result Performing Organization Address City/State/[facility] Co de Phone Number [facility] [id number] [address] Department [place] [address] * Comprehensive metabolic panel (07/02/2024 1:24 PM OUTBOUND TELEMARKETING REPRESENTATIVE) Sodium 142 135 - 145 mmol/L Comment:Testing performed by : [facility] [address], [place] [address] Potassium, pl 3.9 3.3 - 4.9 mmol/L DAVONTE RIZZO Comment:Testing performed by : [facility] [address], [place] [address] Chloride 106 97 - 110 mmol/L DAVONTE Comment:Testing performed by : [facility], [address] [address] CO2 24 22 - 32 mmol/L CERNER CH Comment:Testing performed by : [place] [address] [place] [address] Anion gap 12 2 - 15 mmol/L CERNER CH Comment:Testing performed by : [facility] [place] [address] BUN 10 6 - 25 mg/dL CERNER CH Comment:Testing performed by : [facility] [place] [address] Creatinine 0.94 0.60 - 1.10 mg/dL CERNER CH Comment:Testing performed by : [address] [place] [address] Glucose 111 70 - 199 mg/dL CERNER CH Comment: Interpretive Data Fasting glucose >/= 126 [...] was last revised 2022. Testing performed by: [place] [address] [place] [address] Calcium 9.4 8.5 - 10.3 mg/dL CERNER CH Comment:Testing performed by : [address] [place] [address] Bilirubin, total <0.2 0.1 - 1.2 mg/dL CERNER CH Comment:Testing performed by : [facility] [place] [address] Protein, pl 7.8 6.5 - 8.5 g/dL CERNER CH Comment:Testing performed by : [place] [address] [place] [address] Albumin 4.0 3.5 - 5.0 g/dL CERNER CH Comment:Testing performed by : [facility] [place] [address] Alk phos 72 40 - 130 Units/L CERNER CH Comment:Testing performed by : [place] [address] [place] [address] ALT 37 7 - 45 Units/L DAVONTE Comment:Testing performed by : [facility], [address] [place] [address] AST 26 10 - 45 Units/L DAVONTE Comment:Testing performed by : [facility], [address] [place] [address] Blood 07/02/2024 1:24 PM OUTBOUND TELEMARKETING REPRESENTATIVE 07/02/2024 1:24 PM OUTBOUND TELEMARKETING REPRESENTATIVE us Ellen Baltazar MD LAB BLOOD ORDERABLES Final Result [facility] [address] [address] Department [place] [address] * COLONOSCOPY (12/07/2018 9:00 AM CDT) Anatomical Region Laterality Modality Other Narrative Procedure Note Ru Delgado MD - 12/07/2018 9:00 AM CDT [facility] Patient Name: Zara Lora Procedure [...] passedunder direct vision. The Colonoscope CF-Q180 [place] [id number] introduced through the sigmoid colostomy andadvanced to [...] surgeon today. Procedure Code(s): --- Professional --- 20446, Colonoscopy through stoma; with biopsy,single or multiple Diagnosis Code(s): --- Professional --- K62.1, Rectal polyp K57.32, Diverticulitis of large intestine without perforation or abscess without bleeding CPT copyright 2017 [employer]. All rights reserved. The codes documented in this report are preliminary and upon farm mechanic reviewmay be revised to meet current compliance [...] AM CDT 03/09/2018 3:42 PM CDT Narrative DAVONTE - 03/09/2018 5:36 PM CDT Kailee Chairez ENGINEER SERGEANT LAB MICROBIOLOGY - GENERAL O RDERABLES Final Result [facility] [id number] [address] [place] [address] from Last 3 Months or Most Recently Relevant to Health Maintenance Insurance [facility] Advance Directives For more information, please contact: [phone] * Full Code (Latest Code Status on File) Date Activated Date Inactivated Comments 07/18/2020 2:09 AM 07/27/2020 6:04 PM * Full Code Date Activated Date Inactivated Comments 07/05/2019 3:01 PM 07/09/2019 7:03 PM * Full Code Date Activated Date Inactivated Comments 04/17/2018 3:47 PM 05/01/2018 8:54 PM * Full Code Date Activated Date Inactivated Comments 03/23/2018 12:15 PM 03/30/2018 7:20 PM Care Teams Weed Thinner Relationship Specialty Start Date End Date Ellen Baltazar MD [address] [facility] [address] [place] [address] PCP - General Internal Medicine 04/27/17 Koko Unger MD [address] [place] [address] Surgeon Colon and Rectal Surgery 05/01/18
[2024-09-19 16:10] VITALS: BP 130/74; PULSE 84; RESP 16; O2SAT 99
== END 2024-09-19 16:11 | disposition home or self-care (01) ==
PROVIDERS: Emergency Provider Physician Assistant; PCP Hospitalist
DX: S90.32XA Contusion of left foot, initial encounter (principal); W20.8XXA Other cause of strike by thrown, projected or falling object, initial encounter
CPT/HCPCS: 73630; 99283; A9270